=== PATIENT | male | born 1985 | race Two or more races ===

== ENCOUNTER 2022-01-17 15:30 | Inpatient (IN) | payer OTHER ==
[~2022-01-17] VITALS: Ht 175.3 cm; Wt 82.7 kg
[2022-01-17] MEDS ORDERED: fentaNYL CITRATE 100 MCG/2 ML VL IV ONE (16:30)
[2022-01-17] MEDS ORDERED: ONDANSETRON HCL 4 MG/2 ML VIAL IV ONE ×2 (16:30→22:30)
[2022-01-17 17:51] LABS: Alanine Aminotransferase 59 U/L (16-61); Albumin 3.7 g/dL (3.4-5.0); Anion Gap 7 (5-15); Aspartate Aminotransferase 81 U/L (15-37); BUN/Creatinine Ratio 13.1; Blood Urea Nitrogen 14 mg/dL (7-18); Calcium 8.8 mg/dL (8.5-10.1); Carbon Dioxide 29 mmol/L (21-32); Chloride 105 mmol/L (98-107); GFR African American 99 mL/min; GFR Non-African American 82 mL/min; Glucose 134 mg/dL (74-106); Lipase 51 U/L (73-393); Magnesium 2.2 mg/dL (1.6-2.6); Potassium 4.4 mmol/L (3.5-5.1); Sodium 141 mmol/L (136-145)
[2022-01-17 17:53] LABS: Alkaline Phosphatase 110 U/L (45-117); Basophils # (auto) 0 10 ^3/uL (0-0.2); Basophils % (auto) 0.4 % (0.0-2.0); Bilirubin, Total 0.3 mg/dL (0.2-1.0); Eosinophils # (auto) 0 10 ^3/uL (0-0.8); Hematocrit 39.8 % (41.0-53.0); Hemoglobin 13.4 g/dL (13.5-17.5); Lymphocytes # (auto) 0.8 10 ^3/uL (0.4-5.4); Lymphocytes % (auto) 7.2 % (10.0-50.0); Mean Corpuscular Hemoglobin 29.4 pg (28.0-32.0); Mean Corpuscular Hgb Conc. 33.7 g/dL (32.0-36.0); Mean Corpuscular Volume 87.5 fL (80.0-100.0); Monocytes # (auto) 0.3 10 ^3/uL (0-1.3); Monocytes % (auto) 3.1 % (0.0-12.0); Neutrophils # (auto) 9.5 10 ^3/uL (1.6-8.6); Neutrophils % (auto) 89.3 % (37.0-80.0); Red Blood Cells 4.55 10^6/uL (4.5-5.90); Red Cell Distribution Width 13.7 % (11.8-14.3); Total Protein 6.9 g/dL (6.4-8.2); White Blood Cell 10.6 10^3/uL (4.4-10.8)
[2022-01-17] MEDS ORDERED: TAMSULOSIN HYDROCHLORIDE 0.4 MG CAP PO ONE ×2 (18:30→22:30)
[2022-01-17] MEDS ORDERED: SODIUM CHLORIDE 0.9% 1,000 ML IV ONE (18:45)
[2022-01-17 19:57] LABS: Urine Bacteria FEW /hpf (None Seen); Urine Blood 3+ /uL (Negative); Urine Mucus FEW (None Seen); Urine WBC 1 /hpf (0 - 3)
[2022-01-17] MEDS ORDERED: D5W/SOD CHL 0.45% 1,000 ML IV ONE (22:30)
[2022-01-17] MEDS ORDERED: HYDROcodone-ACET 10/325MG TAB PO ONE (22:30)
[2022-01-17] MEDS ORDERED: MORPHINE SULFATE INJECTION 2 MG/ML SYRG IV PRN (22:30)
[2022-01-17] MEDS ORDERED: NITROGLYCERIN 0.4 MG SL TAB SL PRN (22:30)
[2022-01-18] VITALS: BP 117/71
[2022-01-18] MEDS ORDERED: GABA-339 PO (00:30)
[2022-01-18] MEDS ORDERED: DICY20TA PO (00:30)
[2022-01-18] MEDS ORDERED: IBUP600T27 PO (00:31)
[2022-01-18] MEDS ORDERED: SERT50TA19 PO (00:32)
[2022-01-18] MEDS ORDERED: [UNRECOGNIZED DRUG - CODE] EX (00:34)
[2022-01-18] MEDS: HYDROcodone-ACET 10/325MG TAB PO PRN ×3 (02:55→11:27)
[2022-01-18 05:00] VITALS: BP 126/76
[2022-01-18 08:00] VITALS: BP 115/65
[2022-01-18] MEDS: cefTRIAXone 1GM/50ML D5W 50 ML IV SCH (11:27)
[2022-01-18] MEDS: ENOXAPARIN SOD 40 MG/0.4 ML SYRINGE SC SCH (11:27)
[2022-01-18 12:00] VITALS: BP 155/96
[2022-01-18] MEDS ORDERED: IBUPROFEN 800 MG TAB PO PRN (14:30)
[2022-01-18] MEDS ORDERED: TAMSULOSIN HYDROCHLORIDE 0.4 MG CAP PO ONE (14:45)
[2022-01-18] MEDS ORDERED: MANNITOL FTV 25% 12.5 GM/50 ML 50 ML IV ONE (15:30)
[2022-01-18 16:00] VITALS: BP 128/84
[2022-01-18] MEDS: HYDROmorphone HCL 2 MG/ML VL IV PRN (20:14)
[2022-01-18 22:00] VITALS: BP 134/67
[2022-01-18] MEDS: DICYCLOMINE HCL 10 MG CAP PO SCH (22:07)
[2022-01-18] MEDS: GABAPENTIN 300 MG CAP PO SCH (22:07)
[2022-01-19] MEDS ORDERED: GABA300C10 PO (00:11)
[2022-01-19] MEDS: HYDROmorphone HCL 2 MG/ML VL IV PRN ×4 (00:53→20:10)
[2022-01-19 05:00] VITALS: BP 114/68
[2022-01-19 09:02] VITALS: BP 110/69
[2022-01-19] MEDS: cefTRIAXone 1GM/50ML D5W 50 ML IV SCH (09:54)
[2022-01-19] MEDS: DICYCLOMINE HCL 10 MG CAP PO SCH ×2 (09:54→22:07)
[2022-01-19] MEDS: TAMSULOSIN HYDROCHLORIDE 0.4 MG CAP PO SCH (09:55)
[2022-01-19] MEDS: GABAPENTIN 300 MG CAP PO SCH ×2 (09:56→22:07)
[2022-01-19] MEDS: PANTOPRAZOLE 40 MG TAB PO SCH (09:56)
[2022-01-19] MEDS: ENOXAPARIN SOD 40 MG/0.4 ML SYRINGE SC SCH (09:57)
[2022-01-19] MEDS: SERTRALINE HCL 50 MG TAB PO SCH (09:57)
[2022-01-19 13:00] VITALS: BP 120/73
[2022-01-19 16:56] VITALS: BP 132/81
[2022-01-19 22:00] VITALS: BP 133/79
[2022-01-20] MEDS: HYDROmorphone HCL 2 MG/ML VL IV PRN ×5 (01:54→23:01)
[2022-01-20 04:44] VITALS: BP 115/68
[2022-01-20 08:55] VITALS: BP 125/71
[2022-01-20] MEDS: SERTRALINE HCL 50 MG TAB PO SCH (09:19)
[2022-01-20] MEDS: GABAPENTIN 300 MG CAP PO SCH ×2 (09:19→20:47)
[2022-01-20] MEDS: TAMSULOSIN HYDROCHLORIDE 0.4 MG CAP PO SCH (09:19)
[2022-01-20] MEDS: DICYCLOMINE HCL 10 MG CAP PO SCH ×2 (09:19→20:47)
[2022-01-20] MEDS: PANTOPRAZOLE 40 MG TAB PO SCH (09:19)
[2022-01-20] MEDS: cefTRIAXone 1GM/50ML D5W 50 ML IV SCH (09:19)
[2022-01-20] MEDS: ENOXAPARIN SOD 40 MG/0.4 ML SYRINGE SC SCH (09:20)
[2022-01-20 11:42] LABS: INR 1.1 (0.9-1.15); Partial Thromboplastin Time 30.4 sec (23.6-33.0)
[2022-01-20 13:00] VITALS: BP 108/66
[2022-01-20] MEDS ORDERED: ceFAZolin 1GM/50ML 100 ML IV ONE (14:38)
[2022-01-20] MEDS ORDERED: PROPOFOL 10 MG/ML 20 ML IV ONE ×2 (14:50→16:28)
[2022-01-20] MEDS ORDERED: ONDANSETRON HCL 4 MG/2 ML VIAL ONE (14:50)
[2022-01-20] MEDS ORDERED: MIDAZOLAM HCL 2MG/2ML 2ml VIAL (1mg/ml) ONE (14:50)
[2022-01-20] MEDS ORDERED: fentaNYL CITRATE 100 MCG/2 ML VL ONE ×2 (14:50→16:18)
[2022-01-20] MEDS ORDERED: SODIUM CHLORIDE LOCK 10 ML ONE (14:50)
[2022-01-20] MEDS ORDERED: DexAMETHasone SOD PHOS 10MG/1ML VIAL INJ ONE (14:50)
[2022-01-20] MEDS ORDERED: MORPHINE SULFATE 4 MG/ML SYR/VIAL IV PRN (15:15)
[2022-01-20] MEDS ORDERED: HYDROmorphone HCL 2 MG/ML VL IV PRN (15:15)
[2022-01-20] MEDS ORDERED: ONDANSETRON HCL 4 MG/2 ML VIAL IV PRN (15:15)
[2022-01-20] MEDS ORDERED: IOHEXOL 300 MG/ML 100ML BOTTLE IJ ONE (15:32)
[2022-01-20 17:00] VITALS: BP 133/82
[2022-01-20 22:00] VITALS: BP 124/61
[2022-01-21] MEDS: HYDROmorphone HCL 2 MG/ML VL IV PRN ×4 (01:39→09:21)
[2022-01-21 05:00] VITALS: BP 114/66
[2022-01-21 08:37] VITALS: BP 113/60
[2022-01-21] MEDS: TAMSULOSIN HYDROCHLORIDE 0.4 MG CAP PO SCH (09:22)
[2022-01-21] MEDS: DICYCLOMINE HCL 10 MG CAP PO SCH (09:22)
[2022-01-21] MEDS: PANTOPRAZOLE 40 MG TAB PO SCH (09:22)
[2022-01-21] MEDS: SERTRALINE HCL 50 MG TAB PO SCH (09:22)
[2022-01-21] MEDS: cefTRIAXone 1GM/50ML D5W 50 ML IV SCH (09:22)
[2022-01-21] MEDS: GABAPENTIN 300 MG CAP PO SCH (09:22)
[2022-01-21] MEDS: ENOXAPARIN SOD 40 MG/0.4 ML SYRINGE SC SCH (09:23)
[2022-01-21 10:50] VITALS: BP 113/60
== END 2022-01-21 12:38 | DRG 694 ==
LOC: EEVIPCON 15:30 → EDBD 15:30 → ER 15:30 → WEST WING 22:20
PROVIDERS: ADMIT Internal Medicine; ATTEND Internal Medicine
PROC: 0TF4XZZ Fragmentation in Left Kidney Pelvis, External Approach (ICD-10-PCS; 2022-01-20)
PROC: 0TCB8ZZ Extirpation of Matter from Bladder, Via Natural or Artificial Opening Endoscopic (ICD-10-PCS; principal; 2022-01-20 15:34)
DX: N13.2 Hydronephrosis with renal and ureteral calculous obstruction (principal); F32.9 Major depressive disorder, single episode, unspecified; F41.9 Anxiety disorder, unspecified; G62.9 Polyneuropathy, unspecified; K58.9 Irritable bowel syndrome, unspecified; R31.29 Other microscopic hematuria; Z20.822 Contact with and (suspected) exposure to COVID-19; Z80.8 Family history of malignant neoplasm of other organs or systems; Z87.442 Personal history of urinary calculi
CPT/HCPCS: 36415; 74018; 74176; 80053; 81001; 83690; 83735; 84484; 85025; 85610; 85730; 93005; 96361; 96374; 96375; G0378; J0690; J0696; J1100; J2250; J2405; J2704